=== PATIENT | female | born 1960 | race American Indian/Alaskan Native ===

== ENCOUNTER 2017-07-05 09:44 | Outpatient (CLI) | payer OTHER ==
--- NOTE | 2017-07-05 11:33 | Fluoroscopy Report ---
UGI INDICATION: Reflux. Gastric bypass 3 years ago. COMPARISON: 06/29/2014. FINDINGS: Upper GI exam performed. Patient swallowed thick and thin barium without any difficulty and tolerated effervescent granules well. [employer] radiographs demonstrate nonobstructive bowel gas pattern, left upper quadrant anastomotic gavi and advanced multilevel spinal degenerative changes. Interval drain removal. Esophagus is normal in course and caliber. Normal peristalsis and mucosal pattern, to the extent assessed. No demonstrable hiatal hernia or gastroesophageal reflux. Normal postoperative gastric contours with prompt passage into the anastomosed small bowel. CONCLUSION: Normal post gastric bypass fluoroscopic appearance with few other findings, as described. Thank you for the opportunity to participate in this patient's care.
== END 2017-07-05 09:45 | disposition home or self-care (01) ==
LOC: FLUORO 09:44
PROVIDERS: ATTEND Surgery
DX: K21.9 Gastro-esophageal reflux disease without esophagitis (principal); Z98.84 Bariatric surgery status
CPT/HCPCS: 74247

== ENCOUNTER 2019-11-06 12:03 | Emergency (ER) | payer OTHER ==
[2019-11-06 12:14] VITALS: BP 170/93
--- NOTE | 2019-11-06 13:46 | XRay Report ---
LEFT KNEE 3 VIEWS INDICATION / CLINICAL INFORMATION: Left knee pain and swelling after fall. COMPARISON: None available. FINDINGS: BONES and JOINT(S): No acute fracture or subluxation. Subjective osteopenia is seen with severe trico mpartmental osteoarthritis. SOFT TISSUES: Synovial proliferation versus a small joint effusion is noted. No additional significan t abnormality. ADDITIONAL FINDINGS: None. IMPRESSION: 1. No acute abnormality of the left knee. 2. Severe osteoarthritis. Signer Name: Dakota Marc MD Signed: 11/06/2019 1:42 PM Workstation Name: [email or web address]
[2019-11-06] MEDS ORDERED: HYDROcodone/ACETAMINOPHEN 10-325MG TAB PO ONE (13:59)
--- NOTE | 2019-11-06 14:19 | Emergency Department Report ---
ED Lower Extremity HPI - General Chief Complaint: Extremity Injury, Lower Stated Complaint: FALL, LEFT KNEE PAIN Time Seen by Provider: 11/06/19 13:27 Source: patient Mode of arrival: Wheelchair Limitations: No Limitations - History of Present Illness Initial Comments: This is a 59-year-old female nontoxic, well nourished in appearance, no acute signs of distress presents to the ED with c/o of left knee pain 1 day. Patient stated that she had a ground trip and fall and landed onto her left knee. Patient denies any other trauma. Patient denies any numbness, tingling, fever, chills, nausea, vomiting, chest pain, shortness of breath, headache, stiff neck. Patient denies any joint swelling or joint redness. Patient denies decreased range of motion. Patient stated has decreased gait due to pain. Patient stated allergies to shellfish. MD Complaint: knee injury -: days(s) Injury: Knee: Left Severity: mild Severity scale (0 -10): 8 Improves With: immobilization Worsens With: weight bearing, movement, palpation Context: fall Associated Symptoms: swelling, able to partially bear weight. denies: snap/pop sensation, numbness, tingling, unable to bear weight - Related Data Home Medications Medication Instructions Recorded Confirmed Last Taken Aspirin [Aspirin BABY CHEW TAB] 1 tab PO DAILY 04/23/14 06/28/14 06/25/14 Insulin NPH/Regular [NovoLIN 70/30] 10 - 20 unit SQ TID 04/23/14 06/28/14 06/27/14 13:00 Metoprolol Tartrate 1 tab PO BID 04/23/14 06/28/14 06/28/14 05:15 lisinopriL [Lisinopril] 20 mg PO DAILY 04/23/14 06/28/14 06/28/14 05:15 metFORMIN [Glucophage] 1 tab PO BID 04/23/14 06/28/14 06/27/14 20:30 Insulin Detemir (Nf) [Levemir 80 units SC QPM 06/04/14 06/28/14 06/27/14 20:30 Flextouch] Simvastatin 40 mg PO QHS 06/04/14 06/28/14 06/27/14 Furosemide 10 mg PO DAILY 06/26/14 06/28/14 06/27/14 Previous Rx's Medication Instructions Recorded Last Taken Type Naproxen 500 mg PO Q8H PRN #15 tablet 11/06/19 Unknown Rx Allergies Allergy/AdvReac Type Severity Reaction Status Date / Time shellfish derived Allergy VOMITING;THROAT Verified 04/23/14 12:30 CLOSES ED Review of Systems ROS: Stated complaint: FALL, LEFT KNEE PAIN Other details as noted in HPI Constitutional: denies: chills, fever Eyes: denies: eye pain, eye discharge, vision change ENT: denies: ear pain, throat pain Respiratory: denies: cough, shortness of breath, wheezing Cardiovascular: denies: chest pain, palpitations Endocrine: no symptoms reported Gastrointestinal: denies: abdominal pain, nausea, diarrhea Genitourinary: denies: urgency, dysuria, discharge Musculoskeletal: denies: back pain, joint swelling, arthralgia Skin: denies: rash, lesions Neurological: denies: headache, weakness, paresthesias Psychiatric: denies: anxiety, depression Hematological/Lymphatic: denies: easy bleeding, easy bruising ED Past Medical Hx - Past Medical History Previous Medical History?: Yes Hx Hypertension: Yes (10 YRS) Hx Heart Attack/AMI: No Hx Diabetes: Yes (11 YRS 2002) Hx GERD: Yes Hx Renal Disease: No Hx Arthritis: Yes Hx Asthma: Yes (inactive) - Social History Smoking Status: Never Smoker Substance Use Type: None - Medications Home Medications: Home Medications Medication Instructions Recorded Confirmed Last Taken Type Aspirin [Aspirin BABY CHEW TAB] 1 tab PO DAILY 04/23/14 06/28/14 06/25/14 History Insulin NPH/Regular [NovoLIN 70/30] 10 - 20 unit SQ TID 04/23/14 06/28/14 06/27/14 13:00 History Metoprolol Tartrate 1 tab PO BID 04/23/14 06/28/14 06/28/14 05:15 History lisinopriL [Lisinopril] 20 mg PO DAILY 04/23/14 06/28/14 06/28/14 05:15 History metFORMIN [Glucophage] 1 tab PO BID 04/23/14 06/28/14 06/27/14 20:30 History Insulin Detemir (Nf) [Levemir 80 units SC QPM 06/04/14 06/28/14 06/27/14 20:30 History Flextouch] Simvastatin 40 mg PO QHS 06/04/14 06/28/14 06/27/14 History Furosemide 10 mg PO DAILY 06/26/14 06/28/14 06/27/14 History Naproxen 500 mg PO Q8H PRN #15 tablet 11/06/19 Unknown Rx ED Physical Exam - General Limitations: No Limitations General appearance: alert, in no apparent distress - Head Head exam: Present: atraumatic, normocephalic - Eye Eye exam: Present: normal appearance - Neck Neck exam: Present: normal inspection, full ROM. Absent: tenderness, meningismus, lymphadenopathy - Extremities Exam Extremities exam: Present: normal inspection, full ROM, tenderness, normal capillary refill, joint swelling. Absent: calf tenderness - Expanded Lower Extremity Exam Left Hip exam: Present: normal inspection, full ROM. Absent: tenderness, swelling Upper Leg exam: Present: normal inspection, full ROM. Absent: tenderness, swelling Knee exam: Present: normal inspection, full ROM, tenderness, swelling, ecchymosis, full knee extension. Absent: abrasion, laceration, deformity, crepidus, dislocation, erythema, effusion, pain w/ pronation/supination, posterior draw sign, pain/laxity with valgus, pain/laxity with varus Lower Leg exam: Present: normal inspection, full ROM. Absent: tenderness, swelling Ankle exam: Present: normal inspection, full ROM. Absent: tenderness, swelling Foot/Toe exam: Present: normal inspection, full ROM. Absent: tenderness, swelling Neuro vascular tendon exam: Present: no vascular compromise Gait: Positive: observed and limited by pain - Back Exam Back exam: Present: normal inspection, full ROM. Absent: tenderness, CVA tenderness (R), CVA tenderness (L), muscle spasm, paraspinal tenderness, vertebral tenderness, rash noted - Neurological Exam Neurological exam: Present: alert, oriented X3 - Psychiatric Psychiatric exam: Present: normal affect, normal mood - Skin Skin exam: Present: warm, dry, intact, normal color. Absent: rash ED Course Vital Signs 11/06/19 12:11 Temperature 98 F Pulse Rate 90 Respiratory 18 Rate Blood Pressure 170/93 O2 Sat by Pulse 96 Oximetry - Reevaluation(s) Reevaluation #1: 11/06/19 14:21 Patient is speaking in full sentences with no signs of distress noted. ED Lower Extremity MDM - Medical Decision Making This is a 59-year-old female that presents with left knee strain. Patient is stable and was examined by me. I referred patient to an orthopedic doctor for further evaluation for possible MRI. X-ray has been obtained and dictated by the radiologist. Patient is notified of the x-ray report with noted by the patient. Patient received a knee immobilize and a walker. Patient was instructed to RICE therapy. Patient received [place] for pain and stated that family member will drive the patient home after discharge due to possible drowsiness. Patient is discharged with Nparoxen. At time of discharge, the patient does not seem toxic or ill in appearance. No acute signs of distress noted. Patient agrees to discharge treatment plan of care. No further questions noted by the patient. Critical care attestation.: If time is entered above; I have spent that time in minutes in the direct care of this critically ill patient, excluding procedure time. ED Disposition Clinical Impression: Strain of left knee Qualifiers: Encounter type: initial encounter Qualified Code(s): S86.912A - Strain of unspecified muscle(s) and tendon(s) at lower leg level, left leg, initial encounter Disposition: - TO HOME OR SELFCARE Is pt being admited?: No Does the pt Need Aspirin: No Condition: Stable Instructions: Knee Immobilizer (ED), Knee Pain (ED), RICE Therapy (ED) Additional Instructions: Follow-up with a orthopedic doctor in 3-5 days or if symptoms worsen and continue return to emergency room as soon as possible. Prescriptions: Naproxen 500 mg PO Q8H PRN #15 tablet PRN Reason: Pain , Severe (7-10) Referrals: JOHN ZAPATA MD [Primary Care Provider] - 3-5 Days PRIMARY CARE, [Referring] - 3-5 Days ANGELIQUE THOMPSON MD [Staff Physician] - 3-5 Days [facility] [Provider Group] - 3-5 Days
== END 2019-11-06 14:54 | disposition home or self-care (01) ==
LOC: ED 12:03
DX: S86.912A Strain of unspecified muscle(s) and tendon(s) at lower leg level, left leg, initial encounter (principal); I10 Essential (primary) hypertension; E11.9 Type 2 diabetes mellitus without complications; K21.9 Gastro-esophageal reflux disease without esophagitis; M19.91 Primary osteoarthritis, unspecified site; J45.909 Unspecified asthma, uncomplicated; Z79.4 Long term (current) use of insulin; Z79.84 Long term (current) use of oral hypoglycemic drugs; Z79.899 Other long term (current) drug therapy; Z91.013 Allergy to seafood; W01.0XXA Fall on same level from slipping, tripping and stumbling without subsequent striking against object, initial encounter; Y93.89 Activity, other specified; Y92.89 Other specified places as the place of occurrence of the external cause; Y99.8 Other external cause status